=== PATIENT | female | born 1990 | race Caucasian/White ===

== ENCOUNTER 2020-07-05 13:49 | Inpatient (IN) | payer OTHER ==
--- NOTE | 2020-07-05 14:16 | BHS.RME ---
2019 N Coronavirus Screen - COVID-19 Screening Questions Dx of COVID-19 or had a positive test in the last 4 weeks?: No Contact with known/suspected COVID patient in last 14 days?: No Any of these symptoms or contact with someone who has?: None Traveled domestically/internationally in the last 14 days?: No Screen score: 0 Screen result: Further Evaluation Substance Use & Tx History - Substance Use History Heroin Substance amount: 20 bags Frequency of use: Daily Substance route: Injection (ex: intravenous or skin popping) Date of Last Use: 07/04/20 Cocaine-Crack Substance amount: 1 gram Frequency of use: Daily Substance route: Injection (ex: intravenous or skin popping) Date of Last Use: 07/04/20 - Last Treatment Date of last treatment: 2015 Treatment type: Medical Where was last treatment: Detox Physical/Psych/Mental Status - Behavior General Behavior: Increased activity (restlessness, agitation) Eye Contact: Normal Other Behaviors: Mannerisms - Cooperativeness Cooperativeness: Cooperative - Thinking Thought Processes: Tight, Logical Thought content: Future oriented - Physical Health Problems Is patient presently having any pain?: Yes Does patient presently have any injuries (include location): No Does patient currently have a fever: No COWS - Scale Resting Pulse: 1= [place] 81-100 Sweatin= Chills/Flushing Restless Observation: 1= Difficult to Sit Still Pupil Size: 0= Normal to Room Light Bone or Joint Aches: 2= Severe Diffuse Aches Runny Nose/ Eye Tearin= Runny Nose/Eyes GI Upset > 30mins: 2= Nausea/Diarrhea Tremor Observation: 2= Slight Tremor Visible Yawning Observation: 1= 1-2x During Session Anxiety or Irritability: 2=Irritable/Anxious Goose Flesh Skin: 3=Piloerection COWS Score: 17
--- NOTE | 2020-07-05 14:25 | HP ---
COWS - Scale Resting Pulse: 1= [place] 81-100 Sweatin= Chills/Flushing Restless Observation: 1= Difficult to Sit Still Pupil Size: 0= Normal to Room Light Bone or Joint Aches: 2= Severe Diffuse Aches Runny Nose/ Eye Tearin= Runny Nose/Eyes GI Upset > 30mins: 2= Nausea/Diarrhea Tremor Observation: 2= Slight Tremor Visible Yawning Observation: 1= 1-2x During Session Anxiety or Irritability: 2=Irritable/Anxious Goose Flesh Skin: 3=Piloerection COWS Score: 17 CIWA Score - Admission Criteria OASAS Guidelines: Admission for Medically Managed Detox: Requires at least one of the followin. CIWA greater than 12 2. Seizures within the past 24 hours 3. Delirium tremens within the past 24 hours 4. Hallucinations within the past 24 hours 5. Acute intervention needed for co occurring medical disorder 6. Acute intervention needed for co occurring psychiatric disorder 7. Severe withdrawal that cannot be handled at a lower level of care (continued vomiting, continued diarrhea, abnormal vital signs) requiring intravenous medication and/or fluids 8. Admitting History and Physical - Past Medical History ...LMP: 01/01/16 - Smoking History Smoking history: Current every day smoker Have you smoked in the past 12 months: Yes Aproximately how many cigarettes per day: 20 - Alcohol/Substance Use Hx Alcohol Use: No Admission ROS [facility] Chief Complaint: I am here to detox Allergies/Adverse Reactions: Allergies Allergy/AdvReac Type Severity Reaction Status Date / Time No Known Allergies Allergy Verified 07/05/20 14:22 History of Present Illness: Patient is a 29 [id number] with heroin use disorder who presents for detox. Her last treatment was in 2016, relapsed 6 months ago. Patient has an abscess to the back of the left forearm which she reports has been present for 2 weeks but did not seek care because she does not have insurance. She denies h/o overdose. Exam Limitations: No Limitations - Ebola screening Have you traveled outside of the country in the last 21 days: No Have you had contact with anyone from an Ebola affected area: No Have you been sick,other than usual withdrawal symptoms: No Do you have a fever: No - Review of Systems Constitutional: Chills, Loss of Appetite, Unintentional Wgt. Loss EENT: reports: Nose Congestion Respiratory: reports: No Symptoms reported Cardiac: reports: No Symptoms Reported GI: reports: Nausea, Poor Appetite, Abdominal cramping : reports: No Symptoms Reported Musculoskeletal: reports: Muscle Pain, Muscle Weakness Integumentary: reports: Sweating, Other (pain to left forearm abscess) Neuro: reports: Headache, Tremors Endocrine: reports: No Symptoms Reported Hematology: reports: No Symptoms Reported Psychiatric: reports: Anxious, Depressed Other Systems: Reviewed and Negative Patient History - Patient Medical History Hx Anemia: No Hx Asthma: No Hx Chronic Obstructive Pulmonary Disease (COPD): No Hx Cardiac Disorders: No Hx Hypertension: No Hx Hypercholesterolemia: No HX Cerebrovascular Accident: No Hx Seizures: No Hx Diabetes: No Hx Gastrointestinal Disorders: Yes Hx Genitourinary Disorders: Yes (remote hx) Hx Sexually Transmitted Disorders: No Hx Renal Disease (ESRD): No Hx Thyroid Disease: No Hx Human Immunodeficiency Virus (HIV): No (NEGATIVE HX) Hx Hepatitis C: No Hx Depression: Yes (not on medication) Hx Suicide Attempt: Yes (slit wrist tilley she was 13 years) Hx Bipolar Disorder: Yes Hx Schizophrenia: No - Patient Surgical History Past Surgical History: No - PPD History Previous Implant?: Yes Documented Results: Negative w/proof Implanted On Prior R Admission?: Yes Date: 06/12/16 Results: negative PPD to be Administered?: Yes - Reproductive History Patient is a Female of Child Bearing Age (11 -55 yrs old): Yes Last Menstrual Period: 06/18/20 Patient : No - Smoking Cessation Smoking history: Current every day smoker Have you smoked in the past 12 months: Yes Aproximately how many cigarettes per day: 20 Hx Chewing Tobacco Use: No Initiated information on smoking cessation: Yes 'Breaking Loose' booklet given: 07/05/20 - Substance & Tx. History Hx Alcohol Use: No Hx Substance Use: Yes Substance Use Type: Heroin Hx Substance Use Treatment: Yes - Substances abused Heroin Substance route: Injection Frequency: Daily Amount used: 20 bags Age of first use: 19 Date of last use: 07/04/20 Admission Physical Exam BHS - Physical General Appearance: Yes: No Apparent Distress, Tremorous, Irritable HEENTM: Yes: Hearing grossly Normal, Normocephalic, Normal Voice, Pharynx Normal Respiratory: Yes: Chest Non-Tender, Lungs Clear, Normal Breath Sounds, No Respiratory Distress, No Accessory Muscle Use Neck: Yes: No masses,lesions,Nodules, Supple Breast: Yes: Breast Exam Deferred Cardiology: Yes: Regular Rhythm, Regular Rate, S1, S2 Abdominal: Yes: Normal Bowel Sounds, Non Tender, Soft Genitourinary: Yes: Within Normal Limits Back: Yes: Normal Inspection Musculoskeletal: Yes: full range of Motion, Gait Steady, Muscle Pain, Muscle weakness Extremities: Yes: Tremors, Inflammation (to left forearm), Other (ecchymosis to bilateral LE) 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 NML intact, Fully Oriented, Alert, Normal Mood/Affect, Normal Response Integumentary: Yes: Clammy, Track Forbes, Other (left forearm abscess, site warm with modurate induration) Lymphatic: Yes: Within Normal Limits - Diagnostic (1) Nicotine dependence with withdrawal Current Visit: Yes Status: Acute Qualifiers: Nicotine product type: cigarettes Qualified Code(s): F17.213 - Nicotine dependence, cigarettes, with withdrawal (2) Opioid dependence with withdrawal Current Visit: Yes Status: Acute (3) Abscess of left upper extremity Current Visit: Yes Status: Acute Cleared for Admission [facility] - Detox or Rehab [facility] Level of Care: Medically Managed Detox Regimen/Protocol: Methadone Claeared for Rehab Admission: No Inpatient Rehab Admission - Rehab Decision to Admit Inpatient rehab admission?: No
[2020-07-05] MEDS ORDERED: MAG HYDROX/AL HYDROX/SIMETH 30 ML UNIT-DOSE CUP PO PRN (14:31)
[2020-07-05] MEDS ORDERED: NICOTINE POLACRILEX 2 MG GUM BUC PRN (14:31)
[2020-07-05] MEDS ORDERED: BISMUTH SUBSALICYLATE 524 MG/30 ML UD PO PRN (14:31)
[2020-07-05] MEDS ORDERED: MAGNESIUM CITRATE 300 ML BOTTLE PO PRN (14:31)
[2020-07-05] MEDS ORDERED: ACETAMINOPHEN 325 MG TABLET (FP) PO PRN ×2 (14:31)
[2020-07-05] MEDS ORDERED: cloNIDine HCL 0.1 MG TABLET PO PRN (14:31)
[2020-07-05] MEDS ORDERED: METHADONE HCL 10 MG TABLET (FOR DETOX USE ONLY) PO ONE (14:31)
[2020-07-05] MEDS ORDERED: NALOXONE HCL 0.4 MG/ML VIAL IM PRN (14:31)
[2020-07-05] MEDS ORDERED: MAGNESIUM HYDROX 2400MG/30ML ORAL SUSPENSION 30 ML CUP PO PRN (14:31)
[2020-07-05] MEDS ORDERED: IBUPROFEN 400 MG TABLET (FP) PO PRN (14:31)
[2020-07-05] MEDS ORDERED: MENTHOL/PHENOL 1 EACH UD MM PRN (14:31)
[2020-07-05] MEDS: BACITRACIN 0.9 GM PACKET TP SCH (15:11)
[2020-07-05] MEDS: CEPHALEXIN MONOHYDRATE 500 MG CAPSULE (UD) PO SCH (17:42)
[2020-07-05] MEDS: METHOCARBAMOL 500 MG TABLET PO PRN (22:37)
[2020-07-05] MEDS: MELATONIN 5 MG TABLETS PO SCH (22:37)
[2020-07-05] MEDS: THIAMINE HCL 100 MG TABLET (FP) PO SCH (22:37)
[2020-07-06] MEDS: CEPHALEXIN MONOHYDRATE 500 MG CAPSULE (UD) PO SCH ×5 (00:37→23:41)
[2020-07-06] MEDS ORDERED: METHADONE HCL 10 MG TABLET (FOR DETOX USE ONLY) ONE (09:16)
[2020-07-06] MEDS ORDERED: METHADONE HCL 5 MG TABLET (FOR DETOX USE ONLY) ONE (09:16)
[2020-07-06] MEDS ORDERED: METHADONE (DETOX) 20 MG, METHADONE (DETOX) 5 MG PO ONE (10:00)
[2020-07-06 10:08] LABS: HEMATOCRIT 32.8 % (32.4-45.2); HEMOGLOBIN 11.2 GM/dL (10.7-15.3); MCH 27.7 pg (25.7-33.7); MEAN CELL VOLUME 81.4 fl (80-96); MEAN PLT VOLUME 8.8 fl (7.5-11.1); PLATELET COUNT 263 K/MM3 (134-434); RBC 4.04 M/mm3 (3.60-5.2); RDW 14.5 % (11.6-15.6); WHITE BLOOD COUNT 11.6 K/mm3 (4.0-10.0)
[2020-07-06 10:10] LABS: POTASSIUM 3.6 mmol/L (3.5-5.1)
[2020-07-06 10:14] LABS: ALBUMIN 3.4 g/dl (3.4-5.0); BLOOD UREA NITROGEN 8.7 mg/dL (7-18); CALCIUM 9.3 mg/dL (8.5-10.1)
[2020-07-06] MEDS: BACITRACIN 0.9 GM PACKET TP SCH (10:14)
[2020-07-06] MEDS: NICOTINE 7 MG/24 HOURS TOPICAL PATCH TD SCH (10:15)
[2020-07-06] MEDS: PRENATAL VITAMINS W/ FOLIC ACID TABLET (FP) PO SCH (10:15)
[2020-07-06 10:17] LABS: CREATININE 0.7 mg/dL (0.55-1.3)
[2020-07-06 10:19] LABS: BILIRUBIN,TOTAL 0.8 mg/dL (0.2-1); TOT PROT 7.6 g/dl (6.4-8.2)
--- NOTE | 2020-07-06 12:30 | PN ---
BHS COWS - Scale Resting Pulse: 0= [place] 80 or Below Sweatin= Chills/Flushing Restless Observation: 1= Difficult to Sit Still Pupil Size: 0= Normal to Room Light Bone or Joint Aches: 2= Severe Diffuse Aches Runny Nose/ Eye Tearin= Runny Nose/Eyes GI Upset > 30mins: 1= Stomach Cramp Tremor Observation of Outstretched Hands: 1= Tremor [place], Not Seen Yawning Observation: 1= 1-2x During Session Anxiety or Irritability: 2=Irritable/Anxious Goose Flesh Skin: 0=Smooth Skin COWS Score: 11 S Progress Note (SOAP) Subjective: chills body aches interrupted sleep sweats shakes irritable poor appetite Objective: 07/06/20 12:56 Vital Signs Temperature 97.5 F L 07/06/20 08:27 Pulse Rate 72 07/06/20 08:27 Respiratory Rate 17 07/06/20 08:27 Blood Pressure 124/60 07/06/20 08:27 O2 Sat by Pulse Oximetry (%) 98 07/06/20 08:27 Laboratory Tests 07/05/20 07/06/20 07/06/20 14:59 07:20 07:20 WBC 11.6 H RBC 4.04 Hgb 11.2 Hct 32.8 MCV 81.4 MCH 27.7 MCHC 34.0 RDW 14.5 D Plt Count 263 D MPV 8.8 Sodium Potassium Chloride Carbon Dioxide Anion Gap BUN Creatinine Est GFR (CKD-EPI)AfAm Est GFR (CKD-EPI)NonAf Random Glucose Calcium Total Bilirubin AST ALT Alkaline Phosphatase Total Protein Albumin POC Urine HCG, Qual Negative Syphilis Serology Non-reactive 07/06/20 07:20 WBC RBC Hgb Hct MCV MCH MCHC RDW Plt Count MPV Sodium 142 Potassium 3.6 Chloride 111 H Carbon Dioxide 26 Anion Gap 6 L BUN 8.7 Creatinine 0.7 Est GFR (CKD-EPI)AfAm 133.81 Est GFR (CKD-EPI)NonAf 115.45 Random Glucose 97 Calcium 9.3 Total Bilirubin 0.8 AST 17 ALT 25 Alkaline Phosphatase 88 Total Protein 7.6 Albumin 3.4 POC Urine HCG, Qual Syphilis Serology labs noted aaox3 ambulating no acute distress Assessment: 07/06/20 13:09 withdrawal sx Plan: continue detox increase fluids ensure plus BID
--- NOTE | 2020-07-06 13:57 | CONSULT ---
[facility] Psychiatric Consult - Data Date of interview: 07/06/20 Admission source: Self-referred Identifying data: Ms Daugherty is a single female, unemployed, domiciled seeking detox treatment for opioid Substance Abuse History: Reports history of heroin use. Refer to addiction counselor's summary for further information Medical History: Significant for a history of dyspepsia and untreated abscess left forearm for thepast 2 weeks. Smokes cigarettes 1 ppd Psychiatric History: Patient is known for one previous admission to this facility. She was approached at bedside for psychiatric interview. 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 I don't feel that good right now" Psychiatric Findings - Initial Treatment Plan Initial Treatment Plan: Please re consult when patient is more appropriate for interview
--- NOTE | 2020-07-06 16:16 | EKG ---
Test Reason : Blood Pressure : / mmHG Vent. Rate : 069 BPM Atrial Rate : 069 BPM P-R Int : 128 ms QRS Dur : 084 ms QT Int : 404 ms P-R-T Axes : 046 068 047 degrees QTc Int : 432 ms NORMAL SINUS RHYTHM NORMAL ECG NO PREVIOUS ECGS AVAILABLE Confirmed by KATHY MOORE MD ([id number]) on 07/06/2020 4:15:34 PM Referred By: Confirmed By:KATHY MOORE MD
[2020-07-06] MEDS: METHOCARBAMOL 500 MG TABLET PO PRN (17:32)
[2020-07-06] MEDS: THIAMINE HCL 100 MG TABLET (FP) PO SCH (22:43)
[2020-07-06] MEDS: MELATONIN 5 MG TABLETS PO SCH (22:43)
[2020-07-07] MEDS: CEPHALEXIN MONOHYDRATE 500 MG CAPSULE (UD) PO SCH ×3 (06:29→17:23)
[2020-07-07] MEDS ORDERED: TRIMETHOBENZAMIDE HCL 200MG/2ML INJ IM ONE (07:02)
--- NOTE | 2020-07-07 07:05 | PN ---
[facility] Progress Note Note: Patient reports nausea and vomiting Vital Signs Temperature 98.4 F 07/07/20 06:05 Pulse Rate 54 L 07/07/20 06:05 Respiratory Rate 16 07/07/20 06:05 Blood Pressure 119/54 L 07/07/20 06:05 O2 Sat by Pulse Oximetry (%) 98 07/07/20 06:05 Laboratory Last Values WBC 11.6 K/mm3 (4.0-10.0) H 07/06/20 07:20 RBC 4.04 M/mm3 (3.60-5.2) 07/06/20 07:20 Hgb 11.2 GM/dL (10.7-15.3) 07/06/20 07:20 Hct 32.8 % (32.4-45.2) 07/06/20 07:20 MCV 81.4 fl (80-96) 07/06/20 07:20 MCH 27.7 pg (25.7-33.7) 07/06/20 07:20 MCHC 34.0 g/dl (32.0-36.0) 07/06/20 07:20 RDW 14.5 % (11.6-15.6) D 07/06/20 07:20 Plt Count 263 K/MM3 (134-434) D 07/06/20 07:20 MPV 8.8 fl (7.5-11.1) 07/06/20 07:20 Sodium 142 mmol/L (136-145) 07/06/20 07:20 Potassium 3.6 mmol/L (3.5-5.1) 07/06/20 07:20 Chloride 111 mmol/L (98-107) H 07/06/20 07:20 Carbon Dioxide 26 mmol/L (21-32) 07/06/20 07:20 Anion Gap 6 MMOL/L (8-16) L 07/06/20 07:20 BUN 8.7 mg/dL (7-18) 07/06/20 07:20 Creatinine 0.7 mg/dL (0.55-1.3) 07/06/20 07:20 Est GFR (CKD-EPI)AfAm 133.81 07/06/20 07:20 Est GFR (CKD-EPI)NonAf 115.45 07/06/20 07:20 Random Glucose 97 mg/dL (74-106) 07/06/20 07:20 Calcium 9.3 mg/dL (8.5-10.1) 07/06/20 07:20 Total Bilirubin 0.8 mg/dL (0.2-1) 07/06/20 07:20 AST 17 U/L (15-37) 07/06/20 07:20 ALT 25 U/L (13-61) 07/06/20 07:20 Alkaline Phosphatase 88 U/L (45-117) 07/06/20 07:20 Total Protein 7.6 g/dl (6.4-8.2) 07/06/20 07:20 Albumin 3.4 g/dl (3.4-5.0) 07/06/20 07:20 POC Urine HCG, Qual Negative 07/05/20 14:59 Syphilis Serology Non-reactive (NONREACTIVE) 07/06/20 07:20 Action: Trimethobenzamide injection (Tigan injection) 200mg IM ordered.
[2020-07-07] MEDS: BACITRACIN 0.9 GM PACKET TP SCH (09:36)
[2020-07-07] MEDS: PRENATAL VITAMINS W/ FOLIC ACID TABLET (FP) PO SCH (09:36)
[2020-07-07] MEDS: NICOTINE 7 MG/24 HOURS TOPICAL PATCH TD SCH (09:36)
[2020-07-07] MEDS: METHOCARBAMOL 500 MG TABLET PO PRN (09:37)
[2020-07-07] MEDS ORDERED: METHADONE HCL 10 MG TABLET (FOR DETOX USE ONLY) PO ONE (10:00)
[2020-07-07] MEDS ORDERED: TRIMETHOBENZAMIDE HCL 300 MG CAPSULE PO PRN (10:14)
--- NOTE | 2020-07-07 10:18 | PN ---
BHS COWS - Scale Resting Pulse: 0= [place] 80 or Below Sweatin= Chills/Flushing Restless Observation: 1= Difficult to Sit Still Pupil Size: 0= Normal to Room Light Bone or Joint Aches: 2= Severe Diffuse Aches Runny Nose/ Eye Tearin= Nasal Congestion GI Upset > 30mins: 2= Nausea/Diarrhea Tremor Observation of Outstretched Hands: 2= Slight Tremor Visible Yawning Observation: 0= None Anxiety or Irritability: 1=Feels Anxious/Irritable Goose Flesh Skin: 3=Piloerection COWS Score: 13 BHS Progress Note (SOAP) Subjective: chills sweats nausea restless body aches Objective: 07/07/20 10:17 Vital Signs Temperature 97.1 F L 07/07/20 08:45 Pulse Rate 59 L 07/07/20 08:45 Respiratory Rate 18 07/07/20 08:45 Blood Pressure 149/76 07/07/20 08:45 O2 Sat by Pulse Oximetry (%) 98 07/07/20 08:45 Laboratory Tests 07/05/20 07/06/20 07/06/20 14:59 07:20 07:20 WBC 11.6 H RBC 4.04 Hgb 11.2 Hct 32.8 MCV 81.4 MCH 27.7 MCHC 34.0 RDW 14.5 D Plt Count 263 D MPV 8.8 Sodium Potassium Chloride Carbon Dioxide Anion Gap BUN Creatinine Est GFR (CKD-EPI)AfAm Est GFR (CKD-EPI)NonAf Random Glucose Calcium Total Bilirubin AST ALT Alkaline Phosphatase Total Protein Albumin POC Urine HCG, Qual Negative Syphilis Serology Non-reactive 07/06/20 07:20 WBC RBC Hgb Hct MCV MCH MCHC RDW Plt Count MPV Sodium 142 Potassium 3.6 Chloride 111 H Carbon Dioxide 26 Anion Gap 6 L BUN 8.7 Creatinine 0.7 Est GFR (CKD-EPI)AfAm 133.81 Est GFR (CKD-EPI)NonAf 115.45 Random Glucose 97 Calcium 9.3 Total Bilirubin 0.8 AST 17 ALT 25 Alkaline Phosphatase 88 Total Protein 7.6 Albumin 3.4 POC Urine HCG, Qual Syphilis Serology labs noted aaox3 lying in bed no acute distress Assessment: 07/07/20 10:18 withdrawals Plan: continue detox increase fluids valium 5mg prn x 3 days clonidine 0.1mg bid with parameters
[2020-07-07] MEDS: cloNIDine HCL 0.1 MG TABLET PO SCH ×2 (11:35→22:13)
[2020-07-07] MEDS: diazePAM 5 MG TABLET PO PRN (17:29)
[2020-07-07] MEDS: MELATONIN 5 MG TABLETS PO SCH (22:12)
[2020-07-07] MEDS: THIAMINE HCL 100 MG TABLET (FP) PO SCH (22:12)
[2020-07-08] MEDS: CEPHALEXIN MONOHYDRATE 500 MG CAPSULE (UD) PO SCH ×4 (06:18→17:41)
[2020-07-08] MEDS ORDERED: METHADONE HCL 5 MG TABLET (FOR DETOX USE ONLY) ONE (09:13)
[2020-07-08] MEDS ORDERED: METHADONE HCL 10 MG TABLET (FOR DETOX USE ONLY) ONE (09:13)
[2020-07-08] MEDS ORDERED: METHADONE (DETOX) 10 MG, METHADONE (DETOX) 5 MG PO ONE (10:00)
[2020-07-08] MEDS: PRENATAL VITAMINS W/ FOLIC ACID TABLET (FP) PO SCH (10:11)
[2020-07-08] MEDS: NICOTINE 7 MG/24 HOURS TOPICAL PATCH TD SCH (10:11)
[2020-07-08] MEDS: BACITRACIN 0.9 GM PACKET TP SCH (10:11)
[2020-07-08] MEDS: cloNIDine HCL 0.1 MG TABLET PO SCH ×2 (10:11→22:03)
--- NOTE | 2020-07-08 11:30 | PN ---
BHS COWS - Scale Resting Pulse: 0= [place] 80 or Below Sweatin= Chills/Flushing Restless Observation: 1= Difficult to Sit Still Pupil Size: 0= Normal to Room Light Bone or Joint Aches: 1= Mild Discomfort Runny Nose/ Eye Tearin= None GI Upset > 30mins: 2= Nausea/Diarrhea Tremor Observation of Outstretched Hands: 1= Tremor [place], Not Seen Yawning Observation: 0= None Anxiety or Irritability: 1=Feels Anxious/Irritable Goose Flesh Skin: 0=Smooth Skin COWS Score: 7 BHS Progress Note (SOAP) Subjective: nausea body aches sweats Objective: 07/08/20 11:29 Vital Signs Temperature 98.3 F 07/08/20 08:38 Pulse Rate 78 07/08/20 08:38 Respiratory Rate 18 07/08/20 08:38 Blood Pressure 124/62 07/08/20 08:38 O2 Sat by Pulse Oximetry (%) 98 07/08/20 08:38 Laboratory Tests 07/05/20 07/05/20 07/06/20 14:59 15:00 07:20 WBC RBC Hgb Hct MCV MCH MCHC RDW Plt Count MPV Sodium Potassium Chloride Carbon Dioxide Anion Gap BUN Creatinine Est GFR (CKD-EPI)AfAm Est GFR (CKD-EPI)NonAf Random Glucose Calcium Total Bilirubin AST ALT Alkaline Phosphatase Total Protein Albumin POC Urine HCG, Qual Negative Syphilis Serology Non-reactive COVID-19 ([place]) Not detected 07/06/20 07/06/20 07:20 07:20 WBC 11.6 H RBC 4.04 Hgb 11.2 Hct 32.8 MCV 81.4 MCH 27.7 MCHC 34.0 RDW 14.5 D Plt Count 263 D MPV 8.8 Sodium 142 Potassium 3.6 Chloride 111 H Carbon Dioxide 26 Anion Gap 6 L BUN 8.7 Creatinine 0.7 Est GFR (CKD-EPI)AfAm 133.81 Est GFR (CKD-EPI)NonAf 115.45 Random Glucose 97 Calcium 9.3 Total Bilirubin 0.8 AST 17 ALT 25 Alkaline Phosphatase 88 Total Protein 7.6 Albumin 3.4 POC Urine HCG, Qual Syphilis Serology COVID-19 ([place]) labs noted aaox3 ambulating no acute distress Assessment: 07/08/20 11:29 withdrawals Plan: continue detox increase fluids tigan po prn
[2020-07-08] MEDS: diazePAM 5 MG TABLET PO PRN ×2 (17:41→22:03)
[2020-07-08] MEDS: THIAMINE HCL 100 MG TABLET (FP) PO SCH (22:03)
[2020-07-08] MEDS: MELATONIN 5 MG TABLETS PO SCH (22:03)
[2020-07-09] MEDS: CEPHALEXIN MONOHYDRATE 500 MG CAPSULE (UD) PO SCH ×4 (00:41→17:15)
[2020-07-09] MEDS: diazePAM 5 MG TABLET PO PRN ×3 (06:03→17:15)
[2020-07-09] MEDS ORDERED: METHADONE HCL 10 MG TABLET (FOR DETOX USE ONLY) PO ONE (10:00)
[2020-07-09] MEDS: cloNIDine HCL 0.1 MG TABLET PO SCH (10:28)
[2020-07-09] MEDS: PRENATAL VITAMINS W/ FOLIC ACID TABLET (FP) PO SCH (10:28)
[2020-07-09] MEDS: BACITRACIN 0.9 GM PACKET TP SCH (10:28)
[2020-07-09] MEDS: NICOTINE 7 MG/24 HOURS TOPICAL PATCH TD SCH (10:28)
--- NOTE | 2020-07-09 14:01 | PN ---
BHS COWS - Scale Resting Pulse: 0= [place] 80 or Below Sweatin= No chills or Flushing Restless Observation: 1= Difficult to Sit Still Pupil Size: 0= Normal to Room Light Bone or Joint Aches: 0= None Runny Nose/ Eye Tearin= None GI Upset > 30mins: 0= None Tremor Observation of Outstretched Hands: 0= None Yawning Observation: 0= None Anxiety or Irritability: 1=Feels Anxious/Irritable Goose Flesh Skin: 0=Smooth Skin COWS Score: 2 BHS Progress Note (SOAP) Subjective: sweats anxiety Objective: 07/09/20 14:01 Vital Signs Temperature 97.4 F L 07/09/20 08:34 Pulse Rate 70 07/09/20 08:34 Respiratory Rate 18 07/09/20 08:34 Blood Pressure 115/42 L 07/09/20 08:34 O2 Sat by Pulse Oximetry (%) 100 07/09/20 06:16 aaox3 ambulating no acute distress Assessment: 07/09/20 14:01 mild withdrawals Plan: continue detox d/c in am
--- NOTE | 2020-07-09 18:38 | DS ---
[facility] Detox Discharge Summary Admission Date: 07/05/20 - History Additional Comments: 29 y.o. female reports she wants to leave because she is going to rehab in the am in [facility] and wants to go home and pack . BP 121/80 P 92 COWS =1 pt was educated about the risks of leaving prior to tx completion . Denies symptoms or complaints . States she has Narcan at home and lives w/ her parents who know how to use Narcan. Pt was educated about the risks of leaving prior to completion of tx , including risks of relapse . Pt verbalized an understanding and agreement w/ POC . - Physical Exam Results Vital Signs: Vital Signs Temperature 98.2 F 07/09/20 12:36 Pulse Rate 87 07/09/20 12:36 Respiratory Rate 18 07/09/20 12:36 Blood Pressure 93/57 L 07/09/20 12:36 O2 Sat by Pulse Oximetry (%) 98 07/09/20 12:36 - Treatment Hospital Course: Detox Protocol Followed, Detoxed Safely, Responded well, Discharged Condition Good - Medication Discharge Medications: Ambulatory Orders NK [No Known Home Medication] 06/10/16 - AMA Did Patient Leave Against Medical Advice: No
[2020-07-09 18:40] VITALS: BP 121/80; PULSE 92; TEMP 97.3
[2020-07-10] MEDS ORDERED: METHADONE HCL 5 MG TABLET (FOR DETOX USE ONLY) PO ONE (06:00)
== END 2020-07-09 18:47 | disposition home or self-care (01) | DRG 773 ==
LOC: YASAS 13:49 → Y6N 14:28
PROVIDERS: ADMIT Allergy & Immunology; ATTEND Allergy & Immunology
PROC: HZ2ZZZZ Detoxification Services for Substance Abuse Treatment (ICD-10-PCS; principal; 2020-07-05)
DX: F11.23 Opioid dependence with withdrawal (principal); F14.20 Cocaine dependence, uncomplicated; F17.210 Nicotine dependence, cigarettes, uncomplicated; F32.9 Major depressive disorder, single episode, unspecified; L02.414 Cutaneous abscess of left upper limb; Z87.19 Personal history of other diseases of the digestive system
CPT/HCPCS: 36415; 80053; 81025; 85027; 86780; 93005; 93010; C9803; J0735; U0003